=== PATIENT | female | born 1990 | race Hispanic/Latino ===

== ENCOUNTER 2016-06-23 02:43 | Observation (INO) | payer MEDICAID ==
[2016-06-23] MEDS ORDERED: LACTATED RINGERS 2,000 ML IV ONE (03:31)
[2016-06-23 03:50] LABS: BASOPHILS 0.3 % (0.0-2.0); EOSINOPHILS 0.3 % (0.0-6.0); HEMATOCRIT 43.6 % (36.0-48.0); HEMOGLOBIN 14.2 g/dL (12.0-16.0); LYMPHOCYTES 4.3 % (20.0-40.0); LYMPHOCYTES# 0.4 X 10^3uL (0.8-3.8); MEAN CELL VOLUME 94.8 fL (80.0-100.0); MEAN CORPUS. HGB CONCENTRATION 32.6 g/dL (32.0-36.0); MEAN CORPUSCULAR HEMOGLOBIN 30.9 pg (29.0-35.0); MEAN PLATELET VOLUME 8.6 fL (7.4-10.4); MONOCYTES 0.4 % (2.0-10.0); NEUTROPHILS 94.7 % (54.0-75.0); NEUTROPHILS# 9.7 X 10^3uL (2.6-6.7); RED BLOOD COUNT 4.59 X 10^6uL (4.20-6.10); RED CELL DISTRIBUTION WIDTH 13.2 % (11.5-14.5); WHITE BLOOD COUNT 10.1 X 10^3uL (3.9-10.7)
[2016-06-23] MEDS ORDERED: LACTATED RINGERS 2,000 ML IV SCH ×2 (04:00→06:00)
[2016-06-23] MEDS ORDERED: ONDANSETRON HCL 4 MG/2 ML VIAL IV ONE (04:00)
[2016-06-23 04:02] VITALS: RESP 18
[2016-06-23 04:02] LABS: A/G RATIO 1.1; ALKALINE PHOSPHATASE 75 U/L (38-126); ALT 39 U/L (9-52); AST 26 U/L (14-36); BILIRUBIN, TOTAL 0.6 mg/dL (0.2-1.3); BLOOD UREA NITROGEN 13 mg/dL (7-17); CALCIUM 9.1 mg/dL (8.4-10.2); CHLORIDE 106 mmol/L (98-107); CREATININE 0.7 mg/dL (0.5-1.0); EST GLOMERULAR FILTRATION RATE > 60 mL/min; GLUCOSE 87 mg/dL (70-100); POTASSIUM 3.8 mmol/L (3.5-5.1); SODIUM 137 mmol/L (137-145); TOTAL PROTEIN 7.5 g/dL (6.3-8.2)
[2016-06-23] MEDS ORDERED: LACTATED RINGERS IV SCH (06:05)
[2016-06-23] MEDS ORDERED: DEXTROSE 5% IV SCH (06:05)
[2016-06-23] MEDS ORDERED: DEXTROSE 5% LACTATED RINGERS 1,000 ML IV ONE (06:09)
[2016-06-23 06:21] VITALS: BP 144/80; PULSE 77; TEMP 97.9; O2SAT 96
[2016-06-23] MEDS ORDERED: ONDANSETRON HCL 4 MG/2 ML VIAL IV PRN (06:26)
--- NOTE | 2016-06-23 10:00 | HISTORY & PHYSICAL ---
History of Present Illness (Carson Matias M.D.; 06/23/2016 6:09 AM) The patient is a 25 year old female who presents with vomiting. Symptoms include nausea and vomiting, while symptoms do not include difficulty swallowing , painful swallowing, hematemesis, abdominal pain or pelvic pain. Emesis is characterized as bilious. Onset was sudden 6 hours ago. The symptoms occur frequently. The patient describes this as severe and worsening. Symptoms are exacerbated by eating. Symptoms are not relieved by rest or lying down. Associated symptoms include lightheadedness and diarrhea, while associated symptoms do not include fever or chills. The patient is not currently being treated for this problem. Pertinent medical history includes current . Risk factors include suspected food poisoning (chicken wrap yesterday "wasn't good"), while risk factors do not include exposure to gastroenteritis (denies any sick contacts). Problem List/Past Medical (Carson Matias M.D.; 06/23/2016 6:10 AM) PTSD (post-traumatic stress disorder) (F43.10) Current goes to [facility] ([facility]-weekly counselling/ [facility] (currently refuses meds)) Allergies (Carson Matias M.D.; 06/23/2016 6:10 AM) LATEX Hives, Rash. and skin starts to swell. Paxil *ANTIDEPRESSANTS* Hives. Zoloft *ANTIDEPRESSANTS* Hives. Social History (Carson Matias M.D.; 06/23/2016 6:10 AM) Tobacco Use Remotely quit tobacco use. Quit TOB in 2013, restarted and quit again by her report on 06/07/2016 Medication History (Carson Matias M.D.; 06/23/2016 6:11 AM) /Iron (1 Oral daily) Active. Children's Aspirin (81MG Tablet Chewable, 1 Oral daily) Active. Medications Reconciled Past Surgical History (Carson Matias M.D.; 06/23/2016 6:11 AM) Appendectomy age 12 Arthroscopy of Knee ACL repair EXTRACTION, WISDOM TEETH, IMPACTED [id number] lower left tooth Rib removed- left side- age 15 Tonsillectomy Review of Systems (Carson Matias M.D.; 06/23/2016 6:10 AM) Skin Not Present- Rash. Neck Not Present- Neck Stiffness. Respiratory Not Present- Shortness of Breath. Cardiovascular Not Present- Chest Pain. Gastrointestinal Not Present- Bloody Stool. Female Genitourinary Present- Movements Present. Not Present- Dysuria and Vaginal Bleeding. Vitals (Carson Matias M.D.; 06/23/2016 6:18 AM) 06/23/2016 3:30 AM Temp.: 36.5C Resp.: 18 (Unlabored) P.OX: 94% (Room air) BP: 137/88 (Sitting, Left Arm, Standard) Physical Exam (Carson Matias M.D.; 06/23/2016 6:19 AM) General Mental Status-Drowsy. General Appearance-Not in acute distress. Integumentary Integumentary General Characteristics Temperature - normal warmth is noted. Head and Neck Neck Global Assessment - full range of motion, No lymphadenopathy. Thyroid Gland Characteristics - normal size and consistency and no palpable nodules. ENMT Mouth and Throat Lips - Upper Lip - not dry. Lower Lip - no dryness observed. Oral Cavity/ Oropharynx - Oral Mucosa - moist. Chest and Lung Exam Chest and lung exam reveals -Clear and quiet, even and easy respiratory effort with no use of accessory muscles. Cardiovascular Cardiovascular examination reveals -RRR. Abdomen Inspection Inspection of the abdomen reveals - No Hernias. Palpation/Percussion Palpation and Percussion of the abdomen reveal - Non Tender, No hepatosplenomegaly and No Palpable abdominal masses. Other Characteristics - No Costovertebral angle tenderness - Left, No Costovertebral angle tenderness - Right. Auscultation Auscultation of the abdomen reveals - Bowel sounds normal. Female Genitourinary Speculum & Bimanual Uterus - Characteristics - Gravid, Non Tender. Obstetric Exam Heart Rate - 130 bpm. Peripheral Vascular Lower Extremity Palpation - Tenderness - Bilateral - Non Tender. Edema - Bilateral - No edema. Assessment & Plan (Carson Matias M.D.; 06/23/2016 9:50 AM) Gastroenteritis (K52.9) Impression: Presumed food born. Patient given IV fluids and antiemetics. After 3 liters she was able to tolerated oral intake and requested to go home. Instructed in symptomatic measures. She has appointment on . Current Plans Started Ondansetron 4MG, 1 (one) Tablet Disperse every six hours, as needed, #20 , 5 days starting 06/23/2016, No Refill. Started Imodium A-D 2MG, 1 (one) Tablet every four hous, as needed, #20, 5 days starting 06/23/2016, No Refill. MED SERV 10PM-8AM, 24 HR FAC ([id number]) Dehydration (E86.0) Impression: Not severe on presentation but paitent unable to keep any fluids down so IV rehydration indicated. Signed by Carson Matias M.D. (06/23/2016 9:50 AM) ERICK
== END 2016-06-23 10:00 | disposition home or self-care (01) ==
LOC: NLC 02:43
PROVIDERS: ADMIT Obstetrics & Gynecology; ATTEND Obstetrics & Gynecology
DX: K52.9 Noninfective gastroenteritis and colitis, unspecified (principal); Z33.1 Pregnant state, incidental
CPT/HCPCS: 80053; 85025; 96360; 96361; 96374; G0378; G0379; J2405; J7120